=== PATIENT | female | born 1970 | race Caucasian/White ===

== ENCOUNTER 2017-11-14 12:01 | Emergency (ER) | payer OTHER ==
[~2017-11-14] VITALS: Ht 170.2 cm; Wt 82.0 kg
[~2017-11-14 12:01] MED LIST: ALBU6.7H INH; ALPR0.5T99 PO; CELE10TA9 PO; CIPR500T2 PO; CIPR500T4 PO; CYCL5TAB PO; LEXA20TA PO; LORTA10 PO; LYRI50CA2 PO; MEDR4PAK3 PO; PRED1 PO; PREG25 PO; PREV30CA36 PO; PROM25SU8 PO; PROT40TA PO; TRAZ300T2 PO; VENTAER INH; ZIPR1CAP27 PO; [UNRECOGNIZED DRUG - CODE] PO
[2017-11-14 12:25] VITALS: BP 117/73; PULSE 86; RESP 19; TEMP 98.4; O2SAT 100
[2017-11-14] MEDS ORDERED: CLIN150C14 PO (12:47)
[2017-11-14] MEDS ORDERED: IBUP1TAB7 PO (12:47)
--- NOTE | 2017-11-14 12:47 | PD ---
HPI Chief Complaint: Edema Time Seen by Provider: 12:34 Travel History International Travel<30 days: No Contact w/Intl Traveler<30days: No Traveled to known affect area: No History of Present Illness HPI 47-year-old female presents to the emergency department with complaint of right lower leg and foot redness, swelling, pain 2 days after she got a small wound in between her first and second toes to the top of her foot. Denies fever, vomiting denies paresthesias, loss of sensation, decreased range of motion, decreased strength to the affected extremity. Denies history of DVT. Reports history of cellulitis 10 years ago and states her symptoms feel the same. Rates the pain /. Has not taken any medication or try any treatments to alleviate her symptoms. Says her leg is "on fire." No known aggravating or relieving factors. No primary care provider. Multiple allergies as listed on the chart. History of neuropathy, fibromyalgia, GERD. Has no other medical complaints. No other modifying factors or associated signs and symptoms. PFSH Past Medical History Arthritis: Yes Asthma: Yes Blood Disorders: No Anxiety: Yes (PANIC DISORDER) Depression: Yes Heart Rhythm Problems: No Cancer: No Cardiovascular Problems: Yes High Cholesterol: No Chemotherapy: No Chest Pain: No Congestive Heart Failure: No COPD: Yes Diabetes: No Diminished Hearing: No Endocrine: No Gastrointestinal Disorders: Yes GERD: Yes Genitourinary: Yes Headaches: Yes Hepatitis: No Hiatal Hernia: No Hypertension: No Immune Disorder: No Kidney Stones: Yes Musculoskeletal: Yes (OSTEOARTHRITIS,FIBROMYALGIA) Neurologic: Yes Psychiatric: Yes (PANIC ATTACKS) Reproductive: Yes Respiratory: Yes Immunizations Current: Yes Myocardial Infarction: No Radiation Therapy: No Sleep Apnea: Yes Ulcer: No Influenza Vaccination: No ?: Not : 3 Para: 2 : 1 Ovarian Cysts: Yes Past Surgical History Abdominal Surgery: Yes (LAP FOR ADHESIONS FIBROIDS, COLONOSCOPY) AICD: No Cardiac Surgery: No Ear Surgery: No Endocrine Surgery: Yes Eye Surgery: No Genitourinary Surgery: No Gynecologic Surgery: Yes (LAPAROSCOPIC) Hysterectomy: Yes Joint Replacement: No Neurologic Surgery: No Oral Surgery: Yes Pacemaker: No Thoracic Surgery: No Tonsillectomy: Yes Other Surgery: Yes (HAND SURGERY) Social History Alcohol Use: Yes (USE ON OCCASION 1-2 TIMES YEAR) Tobacco Use: Yes (1 PPD) Substance Use: Yes (COCAINE AND VALIUM, MARIJUANA) Allergies-Medications (Allergen,Severity, Reaction): Coded Allergies: Sulfa (Sulfonamide Antibiotics) (Unverified Allergy, Severe, THROAT CLOSES , 03/13/17) amoxicillin (Unverified Allergy, Severe, THROAT CLOSES, 03/13/17) cefaclor (Unverified Allergy, Severe, THROAT CLOSES, 03/13/17) cephalexin (Unverified Allergy, Severe, THROAT CLOSES, 03/13/17) doxycycline (Unverified Allergy, Severe, THROAT CLOSES, 03/13/17) erythromycin base (Unverified Allergy, Severe, THROAT CLOSES, 03/13/17) minocycline (Unverified Allergy, Severe, THROAT CLOSES, 03/13/17) morphine (Unverified Allergy, Severe, THROAT CLOSES, 03/13/17) penicillin G (Unverified Allergy, Severe, THROAT CLOSES, 03/13/17) tigecycline (Unverified Allergy, Severe, THROAT CLOSES, 03/13/17) acetaminophen (Unverified Adverse Reaction, Severe, N&V, 03/13/17) hydrocodone (Unverified Adverse Reaction, Severe, N/V, 03/13/17) propoxyphene (Unverified Adverse Reaction, Severe, N&V, 03/13/17) Reported Meds & Prescriptions Reported Meds & Active Scripts Active Clindamycin (Clindamycin HCl) 150 Mg Cap 450 Mg PO Q6H 10 Days Ibuprofen 800 Mg Tab 800 Mg PO Q6HR PRN Promethazine Hcl (Promethazine HCl) 25 Mg Tab 25 Mg PO Q6-8HPRN FOR NAUSEA/VOMITING Hydrocodone/Acetaminophen 10 mg/325 mg 10 Mg/325 Mg Tab 1 Tab PO Q4HPRN Erythrocin Stearate (Erythromycin Stearate) 500 Mg Tab 500 Mg PO QID 10 Days Cipro (Ciprofloxacin HCl) 500 Mg Tab 500 Mg PO BID 10 Days Medrol Dosepak (Methylprednisolone) 4 Mg [place] 4 Mg PO DIRECTED TAKE DIRECTED Ventolin Hfa (Albuterol Sulfate) 18 Gm Aero 2 Puff INH Q4HPRN * SHAKE WELL BEFORE USE * Reported Lexapro (Escitalopram Oxalate) 20 Mg Tab 30 Mg PO DAILY Trazodone Hcl (Trazodone HCl) 300 Mg Tab 300 Mg PO HS Deltasone (Prednisone) 1 Mg Tab 0 PO UNKNOWN DOSE Ventolin Hfa (Albuterol Sulfate) 18 Gm Aero 0 INH UNKNOWN DOSE Lyrica (Pregabalin) 25 Mg Cap 0 PO UNKNOWN DOSE Prevacid (Lansoprazole) 30 Mg Capcr 30 Mg PO DAILY Xanax (Alprazolam) 0.5 Mg Tab 0.5 Mg PO TID Ciprofloxacin Hcl 500 Mg Tab 500 Mg PO BID 5 Days Geodon (Ziprasidone) 60 Mg Cap 60 Mg PO AT 7 P.M. Celexa (Citalopram Hydrobromide) 10 Mg Tab 10 Mg PO DAILY Lyrica (Pregabalin) 50 Mg Cap 50 Mg PO TID Protonix (Pantoprazole Sodium) 40 Mg Tabdr 40 Mg PO DAILY Flexeril (Cyclobenzaprine HCl) 5 Mg Tab 5 Mg PO TID Proventil Hfa (Albuterol Sulfate) 6.7 Gm Aero 0 INH TID UNKNOWN DOSE Review of Systems Except as stated in HPI: all other systems reviewed are Neg Physical Exam Narrative GENERAL: Well-nourished, well-developed patient, in no acute distress SKIN: Warm and dry. Dorsal aspect of right foot with stab wounds noted between the first and second toes; mild erythema to the top of the foot and erythema noted to the anterior dawson that is with warmth to touch consistent with possible cellulitis. Right lower externally is supple and non-tense with 2+ pedal pulse and sensory intact and without edema. No lymphangitis noted. There is redness noted to the left leg also and the patient states that it is a sunburn; the right leg appears similar to the left leg, but a little bit more redness noted. HEAD: Atraumatic. Normocephalic. EYES: Pupils equal and round. No scleral icterus. No injection or drainage. ENT: Mucosa pink and moist. Airway patent. NECK: Trachea midline. CARDIOVASCULAR: Regular rate. RESPIRATORY: No accessory muscle use. GASTROINTESTINAL: Rounded. MUSCULOSKELETAL: No obvious deformities. No clubbing. No cyanosis. No edema. NEUROLOGICAL: Awake and alert. Oriented 3. No obvious cranial nerve deficits. Motor grossly within normal limits. Normal speech. PSYCHIATRIC: Appropriate mood and affect; insight and judgment normal. Data Data Last Documented VS Vital Signs Date Time Temp Pulse Resp B/P (MAP) Pulse Ox O2 Delivery O2 Flow Rate FiO2 11/14/17 12:31 Room Air 11/14/17 12:25 98.4 86 19 117/73 (88) 100 Orders Orders Ibuprofen (Motrin) (11/14/17 13:00) Clindamycin (Cleocin) (11/14/17 13:00) Ed Discharge Order (11/14/17 12:48) MDM Medical Decision Making Medical Screen Exam Complete: Yes Emergency Medical Condition: Yes Medical Record Reviewed: Yes Differential Diagnosis Cellulitis, sunburn, infected wound Narrative Course 47-year-old female with possible cellulitis of the right lower leg and foot. Ibuprofen and clindamycin administered in the ER. Ibuprofen and clindamycin prescribed for home. Instructed patient to follow up with primary care provider. Patient verbalizes understanding and agreement with treatment plan. Patient is medically cleared and stable for discharge. Discussed reasons to return to the emergency department. Patient agrees with treatment plan. The patients vital signs are stable and the patient is stable for outpatient follow- up and treatment. Patient discharged home, stable and in no acute distress. Diagnosis Primary Impression: Cellulitis of right lower leg Referrals: [facility] Primary Care Physician Patient Instructions: Cellulitis (ED), General Instructions Additional Instructions: Complete full course of antibiotics Keep area clean and dry Ibuprofen or Tylenol as directed and as needed for pain and inflammation Follow-up with primary care provider Return to emergency department immediately with worsening of symptoms Med/Other Pt SpecificInfo: Prescription(s) given Scripts Clindamycin (Clindamycin) 150 Mg Cap 450 MG PO Q6H for Infection for 10 Days, #120 CAP 0 Refills Prov: Zabrina Anderson 11/14/17 Ibuprofen (Ibuprofen) 800 Mg Tab 800 MG PO Q6HR Y for PAIN, #30 TAB 0 Refills Prov: Zabrina Anderson 11/14/17 Disposition: 01 DISCHARGE HOME Condition: Stable Zabrina Anderson Nov 14, 2017 12:47
[2017-11-14] MEDS ORDERED: CLINDAMYCIN 150 MG CAP PO ONE (13:00)
[2017-11-14] MEDS ORDERED: IBUPROFEN 800 MG TAB PO ONE (13:00)
== END 2017-11-14 13:40 | disposition home or self-care (01) ==
LOC: NEPD 12:01
DX: L03.115 Cellulitis of right lower limb (principal); M19.90 Unspecified osteoarthritis, unspecified site; J44.9 Chronic obstructive pulmonary disease, unspecified; K21.9 Gastro-esophageal reflux disease without esophagitis; F41.8 Other specified anxiety disorders; G47.30 Sleep apnea, unspecified; F17.200 Nicotine dependence, unspecified, uncomplicated; Z86.79 Personal history of other diseases of the circulatory system; Z87.448 Personal history of other diseases of urinary system; Z86.69 Personal history of other diseases of the nervous system and sense organs; Z87.42 Personal history of other diseases of the female genital tract
CPT/HCPCS: 99283